=== PATIENT | male | born 1975 | race Caucasian/White ===

== ENCOUNTER 2016-05-25 02:09 | Emergency (ER) | payer MEDICAID ==
[2016-05-25] MEDS ORDERED: AZITHROMYCIN 250 MG TABLET PO STA (03:07)
[2016-05-25] MEDS ORDERED: DEXAMETHASONE 10 MG/ML VIAL PO STA (03:07)
[2016-05-25] MEDS ORDERED: CYCLOBENZAPRINE 10 MG Prepack 2 PO PRN (03:07)
[2016-05-25] MEDS ORDERED: KETOROLAC 60 MG/2 ML VIAL IM STA (03:07)
[2016-05-25] MEDS ORDERED: HYDROcod/ACET 5/325 Prepack 6 PO ONE ×2 (03:07→03:13)
[2016-05-25] MEDS ORDERED: CHERRY SYRUP 10 ML UDC PO ONE (03:13)
[2016-05-25] MEDS ORDERED: AZITHROMYCIN 250 MG TABLET PO ONE (03:13)
[2016-05-25] MEDS ORDERED: DEXAMETHASONE 10 MG/ML VIAL ONE (03:14)
[2016-05-25] MEDS ORDERED: KETOROLAC 60 MG/2 ML VIAL ONE (03:14)
[2016-05-25] MEDS ORDERED: CYCLOBENZAPRINE 10 MG Prepack 2 PO ONE (03:14)
== END 2016-05-25 03:38 | disposition home or self-care (01) ==
DX: M51.16 Intervertebral disc disorders with radiculopathy, lumbar region (principal); H66.003 Acute suppurative otitis media without spontaneous rupture of ear drum, bilateral; Z87.891 Personal history of nicotine dependence; Z88.0 Allergy status to penicillin; Z88.5 Allergy status to narcotic agent
CPT/HCPCS: 96372; 99283; 99284; A9270